=== PATIENT | female | born 1980 | race Caucasian/White ===

== ENCOUNTER 2016-06-15 10:57 | Emergency (ER) | payer SELFPAY ==
--- NOTE | 2016-06-15 11:37 | ER Document Report ---
HPI - HPI Patient complains to provider of: hand injury Onset: This morning - 9:30 this morning Onset/Duration: Sudden Quality of pain: Achy Pain Level: 4 Context: Patient states that she was removing a bungee cord was wrapped around closing a get. Patient states when she removed the cord it unraveled quickly swinging around striking the dorsal aspect of her left hand. Patient states she does have a previous history of intense bruising and swelling after even mild injuries. Patient denies any abnormal episodes of bleeding. Patient denies any previous hematologic evaluation for her excessive bruising. Patient states that she had a previous injury involving the same hand in which she had to be transferred to another facility to be observed for possible compartment syndrome. Patient states she did have the wound drained by needle and that they were frequently checking pressures on her left hand previously. Patient complains of swelling to left hand with numbness involving the left second finger. Patient does state that she has had ice pack to the injury since it initially occurred. Associated Symptoms: Other Exacerbated by: Movement - Left hand injury Relieved by: Denies Similar symptoms previously: No Recently seen / treated by doctor: No - ROS ROS below otherwise negative: Yes Systems Reviewed and Negative: Yes All other systems reviewed and negative - GASTROINTESTINAL Gastrointestinal: DENIES: Nausea - REPRODUCTIVE Reproductive: DENIES: : - MUSCULOSKELETAL Musculoskeletal: REPORTS: Extremity pain - Left hand, Swelling - DERM Skin Color: Ecchymosis Past Medical History - General Information source: Patient - Social History Smoking Status: Never Smoker Frequency of alcohol use: None Drug Abuse: None Occupation: none Lives with: Family Family History: Arthritis, CAD, DM, Hyperlipidemia, Hypertension Patient has suicidal ideation: No Patient has homicidal ideation: No Neurological Medical History: Reports: Hx Migraine Renal/ Medical History: Denies: Hx Peritoneal Dialysis Musculoskeltal Medical History: Reports Hx Musculoskeletal Trauma Traumatic Medical History: Reports: Hx Fractures - wrist bilateral and left ankle Past Surgical History: Reports: Hx Oral Surgery, Hx Orthopedic Surgery - left foot - Immunizations Immunizations up to date: No Hx Diphtheria, Pertussis, Tetanus Vaccination: No Vertical Provider Document - CONSTITUTIONAL Agree With Documented VS: Yes Exam Limitations: No Limitations General Appearance: WD/WN, No Apparent Distress - INFECTION CONTROL TRAVEL OUTSIDE OF THE [place] IN LAST 30 DAYS: No - HEENT HEENT: Atraumatic, Normocephalic - NECK Neck: Normal Inspection - RESPIRATORY Respiratory: No Respiratory Distress O2 Sat by Pulse Oximetry: 100 - CARDIOVASCULAR Pulses: Normal: Radial Notes: decreased capillary refill to left 2nd finger, normal refill to remaining fingers of hand - MUSCULOSKELETAL/EXTREMETIES Musculoskeletal/Extremeties: MAEW, Tender - Patient with left hand tenderness involving left second MCP joint, Edema - Marked swelling with ecchymosis to the dorsal aspect of left hand overlying the left second and third MCP joint, Eccymosis - NEURO Level of Consciousness: Awake, Alert, Appropriate Notes: Patient with decreased range of motion and strength with flexion of left second digit. - DERM Integumentary: Warm, Dry Course - Re-evaluation Re-evalutation: 06/15/16 12:[address] Jeong, Dr Jeong to bedside for examination, recommends having orthopedic physician come and evaluate patient in ER. 06/15/16 12:47 Dr. Celestin consulted who advises consulting with Dr. Escobedo who is currently in the OR. Consulted with Dr. Escobedo, Dr. Escobedo to bedside for examination. After examining patient reports that patient has ecchymotic finger although has normal capillary refill. Does not suspect compartment syndrome at this time. Recommends ice and elevation. - Vital Signs Vital signs: Temp Pulse Resp BP Pulse Ox 98.4 F 81 12 121/71 100 06/15/16 11:06 06/15/16 11:06 06/15/16 11:06 06/15/16 11:06 06/15/16 11:06 - Diagnostic Test Radiology reviewed: Image reviewed, Reports reviewed Discharge - Discharge Clinical Impression: Contusion of hand, left Qualifiers: Encounter type: initial encounter Qualified Code(s): S60.222A - Contusion of left hand, initial encounter Condition: Stable Disposition: HOME, SELF-CARE Instructions: Contusion ([facility]), Ice & Elevation ([facility]) Additional Instructions: Return immediately for any new or worsening symptoms Followup with orthopedic DrJaime for a recheck, call today for follow-up appointment Follow up with a primary doctor for a recheck. Prescriptions: Hydrocodone/Acetaminophen [Fletcher 5-325 Tablet] 1 each PO Q4 PRN #15 tablet PRN Reason: Referrals: [facility] [Provider Group] - Follow up as needed EDER ESCOEBDO DO [ACTIVE STAFF] - Follow up in 3-5 days [facility] [Provider Group] - Follow up tomorrow
--- NOTE | 2016-06-15 13:00 | PDOC CONSULTATION ---
History of Present Illness History of Present Illness: KWAKU CALIXTO is a 35 year old female who at 10 AM today inadvertently hit her hand with a metal portion of the [employer] cord. Since that time she has had increasing pain and swelling along with numbness and tingling in the fingers. Pain 7/10. Pain worse with motion. Patient notes history of easy bruising and swelling. She also developed an injury similar on his hand which was initially thought his compartment syndrome but ultimately was found to be negative for compartment syndrome. Patient denies cold intolerance. Past Medical History Neurological Medical History: Reports: Migraine Past Surgical History Past Surgical History: Reports: Orthopedic Surgery - left foot Social History Smoking Status: Never Smoker Family History Family History: Arthritis, CAD, DM, Hyperlipidemia, Hypertension Parental Family History Reviewed: No Children Family History Reviewed: No Sibling(s) Family History Reviewed.: No Medication/Allergy Home Medications: Ondansetron [Zofran Odt 4 mg Tablet] 1 tab PO Q6H #15 tab.rapdis 04/19/14 Hydrocodone/Acetaminophen [[place] 5-325 Tablet] 1 each PO Q4 PRN #15 tablet 06/15 Allergies/Adverse Reactions: promethazine HCl [From Phenergan] Allergy (Verified 06/15/16 11:02) pseudoephedrine HCl [From Sudafed] Allergy (Verified 06/15/16 11:02) sumatriptan [From Imitrex] Allergy (Verified 06/15/16 11:02) sumatriptan succinate [From Imitrex] Allergy (Verified 06/15/16 11:02) Review of Systems Constitutional: ABSENT: chills, fever(s), headache(s), weight gain, weight loss Eyes: ABSENT: visual disturbances Ears: ABSENT: hearing changes Cardiovascular: ABSENT: chest pain, dyspnea on exertion, edema, orthropnea, palpitations Respiratory: ABSENT: cough, hemoptysis Gastrointestinal: ABSENT: abdominal pain, constipation, diarrhea, hematemesis, hematochezia, nausea, vomiting Genitourinary: ABSENT: dysuria, hematuria Integumentary: ABSENT: rash, wounds Neurological: ABSENT: abnormal gait, abnormal speech, confusion, dizziness, focal weakness, syncope Psychiatric: ABSENT: anxiety, depression, homidical ideation, suicidal ideation Endocrine: ABSENT: cold intolerance, heat intolerance, menstrual abnormalities, polydipsia, polyuria Hematologic/Lymphatic: ABSENT: easy bleeding, easy bruising, lymphadenopathy Physical Exam Vital Signs: Temp Pulse Resp BP Pulse Ox 98.4 F 81 12 121/71 100 06/15/16 11:06 06/15/16 11:06 06/15/16 11:06 06/15/16 11:06 06/15/16 12:52 Intake & Output 06/14/16 06/15/16 06/16/16 06:59 06:59 06:59 Weight 42.2 kg General appearance: PRESENT: no acute distress, well-developed, well-nourished Head exam: PRESENT: atraumatic, normocephalic Eye exam: PRESENT: conjunctiva pink, EOMI, PERRLA. ABSENT: scleral icterus Ear exam: PRESENT: normal external ear exam Mouth exam: PRESENT: moist, tongue midline Neck exam: PRESENT: full ROM. ABSENT: carotid bruit, JVD, lymphadenopathy, thyromegaly Respiratory exam: PRESENT: unlabored Cardiovascular exam: PRESENT: RRR. ABSENT: diastolic murmur, rubs, systolic murmur Pulses: PRESENT: normal radial pulses Vascular exam: PRESENT: normal capillary refill GI/Abdominal exam: ABSENT: distended, guarding, mass, organolmegaly, rebound, tenderness Rectal exam: PRESENT: deferred Musculoskeletal exam: PRESENT: other - Left hand: Notable bruising swelling and ecchymosis from the MCP joint dorsally to the tip of the digit. No open wound. Patient has intact DIP, PIP and MCP joint flexion however pain with motion. Cap refill brisk less than 2 seconds. Patient lacks sensation to light touch dorsally and volarly. Neurological exam: PRESENT: alert, awake, oriented to person, oriented to place , oriented to time, oriented to situation, CN II-XII grossly intact. ABSENT: motor sensory deficit Psychiatric exam: PRESENT: appropriate affect, normal mood. ABSENT: homicidal ideation, suicidal ideation Skin exam: PRESENT: dry, intact, warm. ABSENT: cyanosis, rash Results Impressions: Hand X-Ray 06/15/16 11:29 IMPRESSION: Extensive soft tissue swelling. No acute fracture or dislocation. Status: Image reviewed by me - I have reviewed patient's radiographs demonstrate dorsal soft tissue swelling. No evidence of fracture or dislocation. Assessment & Plan - Diagnosis (1) Contusion of hand, left Qualifiers: Encounter type: initial encounter Qualified Code(s): S60.222A - Contusion of left hand, initial encounter Is this a current diagnosis for this admission?: YesPlan: Patient sustained a severe left hand contusion which is causing ecchymosis and swelling. There is no evidence of fractures and given the location no evidence of vascular compromise. She may have underlying injury to the dorsal metacarpal sensory branch I do feel once her swelling subsides this will improve. At this point I have recommended aggressive ice and elevation and progressing with range of motion as tolerated. Also have her follow up with a barrel drum cutter for further workup of her easy bruising and swelling. Patient will follow-up with me in the office.
[2016-06-15 13:38] VITALS: BP 129/82
== END 2016-06-15 13:43 | disposition home or self-care (01) ==
LOC: ER 10:57
DX: S60.222A Contusion of left hand, initial encounter (principal); W20.8XXA Other cause of strike by thrown, projected or falling object, initial encounter; Y93.89 Activity, other specified; R20.0 Anesthesia of skin
CPT/HCPCS: 99283

== ENCOUNTER 2019-05-31 13:09 | Emergency (ER) | payer OTHER ==
[2019-05-31 13:18] VITALS: BP 117/54
--- NOTE | 2019-05-31 13:18 | ER Document Report ---
ED General - General Chief Complaint: Wrist Pain Stated Complaint: WRIST PAIN Primary Care Provider: UMA PIERCE JR, DO [ACTIVE PROVISIONAL STAFF] - Follow up as needed Notes: 38-year-old female presents with left volar wrist and hand pain after falling from a hover board about an hour ago. Constant but worse with movement. Radiates up the wrist. No shoulder elbow or other pain no head impact no LOC. [id number]. TRAVEL OUTSIDE OF THE [place] IN LAST 30 DAYS: No - Related Data Allergies/Adverse Reactions: promethazine HCl [From Phenergan] Allergy (Verified 05/31/19 13:16) pseudoephedrine HCl [From Sudafed] Allergy (Verified 05/31/19 13:16) sumatriptan [From Imitrex] Allergy (Verified 05/31/19 13:16) sumatriptan succinate [From Imitrex] Allergy (Verified 05/31/19 13:16) Past Medical History - Social History Smoking Status: Never Smoker Chew tobacco use (# tins/day): No Frequency of alcohol use: None Drug Abuse: None Family History: Arthritis, CAD, DM, Hyperlipidemia, Hypertension Patient has suicidal ideation: No Patient has homicidal ideation: No Neurological Medical History: Reports: Hx Migraine Renal/ Medical History: Denies: Hx Peritoneal Dialysis Musculoskeletal Medical History: Reports Hx Musculoskeletal Trauma Traumatic Medical History: Reports: Hx Fractures - wrist bilateral and left ankle Past Surgical History: Reports: Hx Oral Surgery, Hx Orthopedic Surgery - left foot - Immunizations Immunizations up to date: No Hx Diphtheria, Pertussis, Tetanus Vaccination: No Review of Systems - Review of Systems Notes: REVIEW OF SYSTEMS GEN: Denies fever, chills, weight loss ENT: Denies sore throat, nasal discharge, ear pain EYES: Denies blurry vision, eye pain, discharge CV: Denies chest pain, palpitations, edema RESP: Denies cough, shortness of breath, wheezing GI: Denies abdominal pain, nausea, vomiting, diarrhea MSK: Left wrist pain SKIN: Denies rash, skin lesions LYMPH: Denies swollen glands/lymph nodes NEURO: Denies headache, focal weakness or numbness, dizziness PSYCH: Denies depression, suicidal or homicidal ideation PHYSICAL EXAMINATION General: No acute distress, well-nourished Head: Atraumatic, normocephalic ENT: Mouth normal, oropharynx moist, no exudates or tonsillar enlargement Eyes: Conjunctiva normal, pupils equal, lids normal Neck: No JVD, supple, no guarding CVS: Normal rate, regular rhythm, no murmurs Resp: No resp distress, equal and normal breath sounds bilaterally GI: Nondistended, soft, no tenderness to palpation, no rebound or guarding Ext: compartments throughout are soft in the left upper extremity, mild tenderness in the volar left thenar eminence and distal wrist no other tenderness Back: No CVA or midline TTP Skin: No rash, warm Lymphatic: No lymphadeopathy noted Neuro: Awake, alert. Face symmetric. GCS 15. Physical Exam - Vital signs Vitals: Temp Pulse Resp BP Pulse Ox 98.6 F 110 H 18 117/54 L 100 05/31/19 13:17 05/31/19 13:17 05/31/19 13:17 05/31/19 13:17 05/31/19 13:17 Course - Vital Signs Vital signs: Temp Pulse Resp BP Pulse Ox 98.6 F 110 H 18 117/54 L 100 05/31/19 13:17 05/31/19 13:17 05/31/19 13:17 05/31/19 13:17 05/31/19 13:17 Discharge - Discharge Clinical Impression: Injury of left wrist Qualifiers: Encounter type: initial encounter Qualified Code(s): S69.92XA - Unspecified injury of left wrist, hand and finger(s), initial encounter Condition: Good Disposition: HOME, SELF-CARE Instructions: Splint Precautions ([facility]), Wrist Sprain ([facility]) Additional Instructions: As we discussed there is a possibility of a small fracture or break in the bones of your hand or wrist although it was not apparent on x-ray today. Please wear the splint we have prescribed, and have your wrist reevaluated in 1 week for possible repeat x-rays. Referrals: UMA PIERCE JR, [ACTIVE PROVISIONAL STAFF] - Follow up as needed
--- NOTE | 2019-05-31 14:04 | RADIOLOGY REPORT (SQ) ---
EXAM DESCRIPTION: WRIST LEFT 3 VIEWS; HAND LEFT 3 VIEWS IMAGES COMPLETED DATE/TIME: 05/31/2019 12:47 pm REASON FOR STUDY: contusion COMPARISON: None. NUMBER OF VIEWS: 6 views TECHNIQUE: AP, lateral, and oblique radiographic images acquired of the left hand and wrist. LIMITATIONS: None. FINDINGS: MINERALIZATION: Normal. BONES: No acute fracture or dislocation. No worrisome bone lesions. Normal alignment. SOFT TISSUES: No soft tissue swelling. No foreign body. OTHER: No other significant finding. IMPRESSION: No radiographic abnormality of the left hand or wrist. TECHNICAL DOCUMENTATION: JOB ID: [id number] [employer]- All Rights Reserved Reading location - IP/workstation name: [email or web address]
--- NOTE | 2019-05-31 14:04 | RADIOLOGY REPORT (SQ) ---
EXAM DESCRIPTION: WRIST LEFT 3 VIEWS; HAND LEFT 3 VIEWS IMAGES COMPLETED DATE/TIME: 05/31/2019 12:47 pm REASON FOR STUDY: contusion COMPARISON: None. NUMBER OF VIEWS: 6 views TECHNIQUE: AP, lateral, and oblique radiographic images acquired of the left hand and wrist. LIMITATIONS: None. FINDINGS: MINERALIZATION: Normal. BONES: No acute fracture or dislocation. No worrisome bone lesions. Normal alignment. SOFT TISSUES: No soft tissue swelling. No foreign body. OTHER: No other significant finding. IMPRESSION: No radiographic abnormality of the left hand or wrist. TECHNICAL DOCUMENTATION: JOB ID: [id number] [employer]- All Rights Reserved Reading location - IP/workstation name: [email or web address]
== END 2019-05-31 14:11 | disposition home or self-care (01) ==
LOC: ER 13:09
DX: S69.92XA Unspecified injury of left wrist, hand and finger(s), initial encounter (principal); M25.532 Pain in left wrist; M79.642 Pain in left hand; V00.181A Fall from other rolling-type pedestrian conveyance, initial encounter; Z88.8 Allergy status to other drugs, medicaments and biological substances; Z88.6 Allergy status to analgesic agent
CPT/HCPCS: 99283